=== PATIENT | female | born 1995 | race Caucasian/White ===

== ENCOUNTER 2016-11-11 22:54 | Emergency (ER) | payer OTHER ==
[~2016-11-11] VITALS: Ht 170.2 cm; Wt 74.0 kg
[~2016-11-11 22:54] MED LIST: MULT-506 PO
[2016-11-11 22:59] VITALS: TEMP 36.4; Ht 170.2 cm; Wt 74.0 kg
[2016-11-11] MEDS ORDERED: NEOM1SOL8 OT (23:23)
--- NOTE | 2016-11-11 23:27 | EMERGENCY ROOM VISIT NOTE ---
History Report prepared by Hermes: Violeta Odom Under the Supervision of: Dr. Chaparro Paredes M.D. First contact with patient: 23:05 Chief Complaint: HEARING LOSS Stated Complaint: HEARING LOSS AFTER TAKING NEOMYCIN, RUPTURED EAR D History of Present Illness The patient is a 21 year old female who presents to the Emergency Room with complaints of constant left ear hearing loss that started a week ago. The patient notes that she jumped into water a week ago and ruptured her ear drum. She also notes that she went to Urgent Care today and was given neomycin drops. The patient states that she experienced pain in her ear after using the drops. The patient states she had pus coming out of her ear this weekend. She also states that she had ear tubes put in twice when she was younger for multiple ear infections. She denies any allergies or abdominal pain. Source of History: patient Onset: a week ago Position: ear (left) Quality: other (hearing loss) Timing: constant Associated Symptoms: No abdominal pain Review of Systems See HPI for pertinent positives & negatives. A total of 6 systems reviewed and were otherwise negative. Past Medical & Surgical Surgical Problems: (1) History of placement of ear tubes (2) [place] teeth removed Family History FHx: cancer FHx: diabetes mellitus FHx: heart disease FHx: hypertension Social History Smoking Status: Never Smoker Current/Historical Medications Scheduled [id number]-[id number]-Zm (Otic) (Antibiotic Ear), 4 DROPS OT TID Allergies Coded Allergies: No Known Allergies (Unverified , 11/11/16) Physical Exam Vital Signs Date Time Temp Pulse Resp B/P (MAP) Pulse Ox O2 Delivery O2 Flow Rate FiO2 11/11/16 23:59 72 18 125/84 99 11/11/16 22:59 36.4 75 18 130/88 99 Room Air Physical Exam GENERAL: Patient is well appearing and in no acute distress. EAR: Right: canal normal, tm heavily scarred but intact. Left: mild erythema posterior canal, no drainage small perforated tm posterior, some fluid in middle ear. Mild pain with movement of pinna. NECK: No stridor, no adenopathy, no meningismus, trachea is midline. LUNGS: No dyspnea. Clear to auscultation and equal bilaterally. No wheeze, no rhonchi. HEART: Regular rate and rhythm. No murmurs, rubs, gallops appreciated. EXTREMITIES: Normal motion all extremities, no cyanosis, no edema. NEUROLOGIC: Alert and oriented, no acute motor or sensory deficits, no focal weakness, cranial nerves grossly intact. SKIN: No rash, no jaundice, no diaphoresis. Medical Decision & Procedures Medications Administered Medications (Trade) Dose Ordered Sig/Marita Route Start Time Stop Time Status Last Admin Dose Admin Ofloxacin (Ocuflox 0.3% Oph Soln) 2 drops NOW STAT OTL 11/11/16 23:27 11/11/16 23:29 DC 11/11/16 23:46 2 DROPS ED Course 2310: The patient was evaluated in room B7. A complete history and physical exam was performed. 2316: Discussed the patient's case with Dr. Mary JEFFERY 0: Reevaluated the patient. Discussed results and discharge instructions: She verbalized understanding and agreement. The patient is ready for discharge. Medical Decision Pleasant 21 yr old female with ruptured TM last week, some exudate from canal over weekend and now worsening hearing loss today after starting Cortisporin Otic from Urgent Care. Mild erythema posterior canal, doesn't appear OE and no drainage from the small TM rupture. Reviewed with ENT (Dr Juarez) who advised Floxacin drops and he will have patient seen in his office tomorrow afternoon for audiologic evaluation. Patient comfortable with this plan. Advised stopping Cortisporin. Medication Reconcilliation Current Medication List: was personally reviewed by me Blood Pressure Screening Patient's blood pressure: Normal blood pressure Blood pressure disposition: Did not require urgent referral Consults Time Called: 2314 Consulting Physician: Dr. Rodriguez Returned Call: 2316 Discussed the patient's case. Impression Primary Impression: Perforation of left tympanic membrane Scribe Attestation The scribe's documentation has been prepared under my direction and personally reviewed by me in its entirety. I confirm that the note above accurately reflects all work, treatment, procedures, and medical decision making performed by me. Departure Information Dispostion Home / Self-Care Referrals Elia Juarez D.O. Forms HOME CARE DOCUMENTATION FORM, IMPORTANT VISIT INFORMATION, WORK / SCHOOL INSTRUCTIONS Patient Instructions ED Rupture Eardrum Traumatic, My [facility] Additional Instructions Please follow up with Dr Juarez's office tomorrow afternoon. Call their office in the morning to schedule an appointment. If you have problems setting up an appointment, call [phone] to talk to GRADUATE ASSISTANT to discuss having ENT follow up appointment scheduled.
[2016-11-11] MEDS: OFLOXACIN 0.3% OP SOLN 5 ML BTL OTL STA (23:46)
[2016-11-11 23:59] VITALS: BP 125/84; PULSE 72; O2SAT 99
== END 2016-11-11 23:44 | disposition home or self-care (01) ==
LOC: C.EDB 22:56
DX: H72.92 Unspecified perforation of tympanic membrane, left ear (principal); Z83.3 Family history of diabetes mellitus; Z82.49 Family history of ischemic heart disease and other diseases of the circulatory system